=== PATIENT | male | born 1965 | race Caucasian/White ===

== ENCOUNTER 2018-07-29 13:31 | Inpatient (IN) | payer OTHER ==
[~2018-07-29] VITALS: Ht 149.9 cm; Wt 59.9 kg
[2018-07-29 13:35] VITALS: BP 180/96
--- NOTE | 2018-07-29 13:55 | NUR ---
SEEN BY ERMD WITH ORDERS AND CARRIED OUT.
--- NOTE | 2018-07-29 13:59 | NUR ---
52 YO MALE BIB SELF FOR SUDDEN ONSET OF CHEST PAIN, AWAKE AND ALERT ABLE TO AMBULATE NO ACUTE DISTRESS.
[2018-07-29] MEDS ORDERED: LORazepam 2 MG/ML VIAL IVP ONE (14:00)
[2018-07-29] MEDS ORDERED: KETOROLAC 30 MG/ML VIAL IVP ONE (14:00)
[2018-07-29] MEDS ORDERED: NACL 0.9% 1,000 ML IV ONE (14:00)
--- NOTE | 2018-07-29 14:40 | NUR ---
MEDICATED PER ERMDS ORDER, TOLERATED WELL.
[2018-07-29 14:57] LABS: BASOPHILS % (AUTO) 0.7 % (0.0-2.0); EOSINOPHILS % (AUTO) 0.7 % (0.0-4.0); HEMATOCRIT 37.7 % (36-52); HEMOGLOBIN 12.8 g/dL (12.0-18.0); LYMPHOCYTES # (AUTO) 0.5 K/uL (2.0-11.5); LYMPHOCYTES % (AUTO) 10.9 % (20.5-51.1); MEAN CORPUSCULAR HEMOGLOBIN 32 pg (27-31); MEAN CORPUSCULAR HGB CONC 34 g/dL (33-37); MEAN CORPUSCULAR VOLUME 93.2 fL (80-94); MONOCYTES # (AUTO) 0.5 K/uL (0.8-1.0); MONOCYTES % (AUTO) 12.3 % (1.7-9.3); NEUTROPHILS # (AUTO) 3.4 K/uL (1.8-7.7); NEUTROPHILS % (AUTO) 75.4 % (42.2-75.2); PLATELET COUNT (AUTO) 109 K/uL (140-450); RED BLOOD CELL COUNT(AUTO) 4.05 MIL/uL (4.20-6.10); RED CELL DISTRIBUTION WIDTH 14.7 % (11.6-13.7); WHITE BLOOD COUNT (AUTO) 4.4 K/uL (4.8-10.8)
[2018-07-29 15:15] LABS: ALBUMIN 3.9 g/dL (3.4-5.0); AMYLASE 106 U/L (25-115); ANION GAP 15.7 (8-16); ASPARTATE AMINOTRANSFERASE 126 U/L (15-37); CARBON DIOXIDE 23.2 mmol/L (21-32); CHLORIDE 84 mmol/L (98-107); CREATININE 0.6 mg/dL (0.7-1.3); GFR ARICAN-AMERICAN 181 mL/min (>90); GLUCOSE 136 mg/dL (74-106); LIPASE 657 U/L (73-393); MAGNESIUM 1.3 mg/dL (1.8-2.4); POTASSIUM 3.9 mmol/L (3.5-5.1); TOTAL BILIRUBIN 0.9 mg/dL (0.0-1.0); UREA NITROGEN, BLOOD 4 mg/dL (7-18)
[2018-07-29 15:36] LABS: SODIUM SERUM 119 mmol/L (136-145)
[2018-07-29 15:44] LABS: PROTHROMBIN TIME 9.4 secs (10.8-13.4)
[2018-07-29] MEDS ORDERED: ESCI10TA PO (16:13)
--- NOTE | 2018-07-29 16:14 | NUR ---
PT BACK FROM RADIOLOGY VIA [facility] BY TECH. MATT LOMELI AT BEDSIDE.
[2018-07-29] MEDS ORDERED: ONDANSETRON 4 MG/2 ML VIAL IVP PRN (16:15)
[2018-07-29] MEDS ORDERED: MORPHINE SULFATE 4 MG/ML SYR IVP PRN (16:15)
[2018-07-29] MEDS ORDERED: ACETAMINOPHEN 325 MG TAB PO PRN (16:15)
[2018-07-29] MEDS ORDERED: LORazepam 2 MG/ML VIAL IVP PRN (16:15)
--- NOTE | 2018-07-29 16:16 | NUR ---
RESULTS BACK AND NOTED BY ERMD AND FOR ADMISSION.
--- NOTE | 2018-07-29 16:18 | NUR ---
Patient will be admitted to care of DR. NEWMAN. Admited to TELEMETRY. Will go to room 125 B. Belongings list completed.
[2018-07-29] MEDS ORDERED: MULTIVITAMIN-12 10 ML, THIAMINE 100 MG, FOLIC ACID 1 MG, MAGNESIUM SULFATE 50% 2,000 MG... IV SCH ×5 (16:20)
[2018-07-29] MEDS ORDERED: hydrALAZINE 20 MG/ML VIAL IVP PRN (16:20)
[2018-07-29 16:50] VITALS: BP 154/91
--- NOTE | 2018-07-29 16:50 | NUR ---
RECEIVED BEDSIDE REPORT FROM ER NURSE. PATIENT IS AWAKE, ALERT AND ORIENTEDX4. NO SIGNS OF DISTRESS ON RA. SKIN IS INTACT. IV ON R AC 20G INFUSING NS BOLUS. CLEAN, DRY AND INTACT. FALL RISK PROTOCOL. PATIENT AMBULATED GAIT IS UNSTEADY. SEIZURE PRECAUTIONS IN PLACE D/T POSSIBLE ALCOHOL WITHDRAWAL. VITALS WITHIN NORMAL LIMITS. TELE MONITOR IN PLACE. PATIENT INCONTINENT AT THIS TIME, HE STATES HES NOT ABLE TO MAKE IT TO THE RESTROOM ON TIME. CHANGED PATIENT INTO HOSPITAL GOWN. MRSA SWAB DONE, URINE COLLECT. WILL CONTINUE TO MONITOR THE PATIENT. MOM AT BEDSIDE
--- NOTE | 2018-07-29 17:00 | NUR ---
HOME MED SENT TO PHARMACY
--- NOTE | 2018-07-29 17:20 | NUR ---
DR DOOLEY CALLED ASKS FOR LAB ORDERS, STAT BMP, WANTS DONE Q3HRS. PLACEMENT OF LEBLANC, STRICT I&OS. URINE OSMOLARITY, NA, AND K. ALSO VIT C, MULTIVIT, AND FOLIC ACID. ORDERS ARE IN. LEBLANC IS PLACE. 500ML OUT.
[2018-07-29] MEDS: chlordiazePOXIDE 25 MG CAP PO SCH (18:14)
[2018-07-29] MEDS ORDERED: DEXTROSE 5% 100 ML IV SCH (18:40)
[2018-07-29] MEDS ORDERED: MAG SULF 2000 MG/WATER PREMIX 50 ML IV ONE (18:40)
[2018-07-29 18:44] LABS: ANION GAP 13.2 (8-16); CARBON DIOXIDE 25.5 mmol/L (21-32); CREATININE 0.6 mg/dL (0.7-1.3); POTASSIUM 3.7 mmol/L (3.5-5.1)
[2018-07-29] MEDS ORDERED: MULTIVITAMIN-12 10 ML, THIAMINE 100 MG, MAGNESIUM SULFATE 50% 2,000 MG, FOLIC ACID 1 MG... IV SCH ×5 (19:00)
[2018-07-29] MEDS ORDERED: MULTIVITAMIN 1 TAB PO SCH (19:00)
[2018-07-29] MEDS ORDERED: ASCORBIC ACID 500 MG TAB PO SCH (19:00)
[2018-07-29] MEDS ORDERED: FOLIC ACID 1 MG TAB PO SCH (19:00)
--- NOTE | 2018-07-29 19:00 | NUR ---
CALLED DR DOOLEY. HE SAID D/T THE NEW SODIUM OF 124 HE WANTS A BANANA BAG W D5W INSTEAD OF LR. PHARMACY IS AWARE AND SAID THEY WILL MAKE A NEW BAG.
--- NOTE | 2018-07-29 19:25 | NUR ---
NEW IV L FA 22G. SL. CLEAN, DRY AND INTACT. DR DOOLEY WANTED 2ND LINE IN CASE OF EMERGENCY
--- NOTE | 2018-07-29 19:30 | NUR ---
GAVE BEDSIDE REPORT TO CYBER SOFTWARE ENGINEER NURSE. PATIENT ENDORSED IN STABLE CONDITION
--- NOTE | 2018-07-29 19:31 | NUR ---
RECEIVED PT IN STABLE CONDITION FROM AM NURSE. AWAKE,ALERT AND ORIENTED X4. ON BEDREST. ON TELE MONITOR-ST. NO C/O ANY DISCOMFORT NOR PAIN NOTED. AM NURSE STARTING A NEW IV ACCESS. PLAN OF CARE DISCUSSED WITH PT AND VERBALIZED UNDERSTANDING. WITH LEBLANC CATH TO GRAVITY. CALL LIGHT PLACED WITHIN EASY REACH. BED ON LOWEST POSITION AND ARE PADDED FOR SEIZURE PRECAUTION. INSTRUCTED TO CALL IN NEED ASSISTANCE OR FOR ANY PROBLEM. WILL CONTINUE TO MONITOR.
[2018-07-29 19:42] LABS: APPEARANCE,URINE CLEAR (CLEAR); BILIRUBIN,URINE NEGATIVE (NEGATIVE); BLOOD, URINE NEGATIVE (NEGATIVE); COLOR,URINE YELLOW (YELLOW); LEUKOCYTE ESTERASE ,URINE NEGATIVE (NEGATIVE); NITRITE, URINE NEGATIVE (NEGATIVE); PH,URINE 6.5 (5.0-9.0); UGLUCOSE NEGATIVE (NEGATIVE)
[2018-07-29] MEDS: DEXTROSE 5% IV SCH ×3 (19:48→23:15)
[2018-07-29] MEDS: MAGNESIUM SULFATE IV SCH ×3 (19:48→23:15)
[2018-07-29 20:00] VITALS: BP 159/98
[2018-07-29 20:47] LABS: CARBON DIOXIDE 27.8 mmol/L (21-32); CREATININE 0.6 mg/dL (0.7-1.3); POTASSIUM 3.8 mmol/L (3.5-5.1)
--- NOTE | 2018-07-29 21:11 | NUR ---
ADDITIONAL ORDER OF DR. GAYLE TO CALL HIM IF NA LEVEL AT MN IS BELOW 120 AND IF ABOVE 128.
--- NOTE | 2018-07-29 21:11 | NUR ---
NA LEVEL 124. PAGED DR. GAYLE .CALLED BACK . MADE AWARE WITH ORDERS.
[2018-07-29] MEDS: METOPROLOL 25 MG TAB PO SCH (21:38)
[2018-07-29 21:40] LABS: POTASSIUM,URINE RANDOM 11 mmol/L (12-75); URINE SODIUM, RANDOM 66 mmol/l (40-220)
[2018-07-30] VITALS: BP 155/83
--- NOTE | 2018-07-30 00:10 | NUR ---
BLOOD WAS DRAWN FOR ANOTHER BMP ORDERED. WILL FOLLOW UP RESULT.
[2018-07-30 00:50] LABS: ANION GAP 14.5 (8-16); CARBON DIOXIDE 27.4 mmol/L (21-32); CREATININE 0.6 mg/dL (0.7-1.3); POTASSIUM 3.9 mmol/L (3.5-5.1)
--- NOTE | 2018-07-30 00:56 | NUR ---
SR. DOOLEY CALLED AND ASKED ABOUT NA LEVEL. LEVEL 126. . HE ORDERED TO CHANGE THE BMP AT 0400 INSTEAD OF 0500. TO GIVE ALSO PT 500ML WATER TO DRINK ,TO FINISH BEFORE BLOOD DRAW.
--- NOTE | 2018-07-30 01:10 | NUR ---
PT STARTED DRINKING WATER TOTAL 500 ML TO TAKE IT SLOWLY. PT MADE AWARE TO FINISH BEFORE BLOOD DRAW.
--- NOTE | 2018-07-30 01:10 | NUR ---
DR. DOOLEY CALLED AGAIN ASKED ABOUT LEBLANC OUTPUT OF PT. OUTPUT 2,550 . ORDERED TO INCREASE THE BANANA BAG ON D5W T0 165 ML PER HOUR. THEN TO MEASURE LEBLANC OUTPUT Q2HRS.
[2018-07-30] MEDS: DEXTROSE 5% 1,000 ML IV SCH ×4 (01:20→09:00)
--- NOTE | 2018-07-30 03:00 | NUR ---
PT IS ASLEEP. NO S/S OF ANY DISCOMFORT NOTED. WILL CONTINUE TO MONITOR.
--- NOTE | 2018-07-30 04:10 | NUR ---
PT IS AAO X4. NEEDS ATTENDED. NO C/O ANY PAIN NOTED.
[2018-07-30 04:20] VITALS: BP 143/94
[2018-07-30 04:41] LABS: BASOPHILS % (AUTO) 0.3 % (0.0-2.0); EOSINOPHILS # (AUTO) 0.2 K/uL (0-0.4); EOSINOPHILS % (AUTO) 3.8 % (0.0-4.0); HEMATOCRIT 41.5 % (36-52); HEMOGLOBIN 13.8 g/dL (12.0-18.0); LYMPHOCYTES # (AUTO) 0.8 K/uL (2.0-11.5); LYMPHOCYTES % (AUTO) 15.9 % (20.5-51.1); MEAN CORPUSCULAR HEMOGLOBIN 31 pg (27-31); MEAN CORPUSCULAR HGB CONC 33 g/dL (33-37); MEAN CORPUSCULAR VOLUME 94.3 fL (80-94); MONOCYTES # (AUTO) 0.6 K/uL (0.8-1.0); MONOCYTES % (AUTO) 12.7 % (1.7-9.3); NEUTROPHILS # (AUTO) 3.4 K/uL (1.8-7.7); NEUTROPHILS % (AUTO) 67.3 % (42.2-75.2); PLATELET COUNT (AUTO) 102 K/uL (140-450); RED CELL DISTRIBUTION WIDTH 14.8 % (11.6-13.7); WHITE BLOOD COUNT (AUTO) 5.1 K/uL (4.8-10.8)
[2018-07-30 04:42] LABS: ANION GAP 13.4 (8-16); CARBON DIOXIDE 27.4 mmol/L (21-32); CREATININE 0.6 mg/dL (0.7-1.3); POTASSIUM 3.8 mmol/L (3.5-5.1)
--- NOTE | 2018-07-30 05:10 | NUR ---
PAGED DR. DOOLEY BUT DR. GAYLE STRIPER TO VERIFY ABOUT D5W. CALLED BACK . MADE AWARE ABOUT THE LATEST NA LEVEL 126. HE SAID TO HOLD THE IV D5W FOR NOW.
--- NOTE | 2018-07-30 05:14 | NUR ---
ADDITIONAL NOTE : DR. GAYLE WANTS THE NEXT BMP AT 10:00 AM TODAY. WILL ORDER.
--- NOTE | 2018-07-30 06:00 | NUR ---
LEBLANC OUTPUT 0330 AM 750 ML AND AT 0530 200 ML ,0730 ANOTHER 200 ML.
--- NOTE | 2018-07-30 07:30 | NUR ---
ENDORSED PT IN STABLE CONDITION TO AM NURSE.
--- NOTE | 2018-07-30 07:30 | NUR ---
RECEIVED PT AAOX4. NO C/O PAIN AT THIS TIME. IV TO LT HAND AND RT AC PATENT AND INTACT. CHEST DIMINISHED AIR ENTRY TO THE BASES, OTHERWISE CLEAR. ABDOMEN SOFT, BOWEL SOUND PRESENT. WITH LEBLANC CATHETER DRAINING MODERATE AMOUNTS OF SLIGHTLY DARK BRAYDEN URINE NOTED. INSTRUCTED PT TO CALL FOR ASSISTANCE, CALL LIGHT WITHIN REACH, BED ON LOWEST POSITION, VERBALIZED UNDERSTANDING.
[2018-07-30 08:00] VITALS: BP 131/92
--- NOTE | 2018-07-30 08:37 | NUR ---
PATIENT HAS BEEN SCREENED AND CATEGORIZED MODERATE NUTRITION RISK. PATIENT WILL BE SEEN WITHIN 3-5 DAYS OF ADMISSION. 08/01/18 08/03/[address]
[2018-07-30] MEDS ORDERED: ASCORBIC ACID 500 MG TAB PO SCH (09:00)
[2018-07-30 09:06] LABS: ANION GAP 12.4 (8-16); CARBON DIOXIDE 28.9 mmol/L (21-32); CREATININE 0.6 mg/dL (0.7-1.3); POTASSIUM 4.3 mmol/L (3.5-5.1)
[2018-07-30] MEDS: chlordiazePOXIDE 25 MG CAP PO SCH ×3 (09:12→17:56)
[2018-07-30] MEDS: METOPROLOL 25 MG TAB PO SCH ×2 (09:12→20:20)
[2018-07-30] MEDS: FOLIC ACID 1 MG TAB PO SCH (09:12)
[2018-07-30] MEDS: MULTIVITAMIN 1 TAB PO SCH (09:13)
[2018-07-30] MEDS: ASCORBIC ACID 500 MG TAB PO SCH (09:13)
[2018-07-30] MEDS: PANTOPRAZOLE 40 MG INJ VIAL IVP SCH (09:15)
--- NOTE | 2018-07-30 09:45 | NUR ---
DR. DOOLEY CAME TO SEE PT WITH NEW ORDERS.
--- NOTE | 2018-07-30 10:30 | NUR ---
URINE SPECIMEN COLLECTED AND SENT TO LAB FOR OSMOLALITY, K, NA ORDERED.
[2018-07-30 12:00] VITALS: BP 149/89
--- NOTE | 2018-07-30 14:57 | NUR ---
CM NOTE PER ELLE OF [facility] (PCP) PH# [phone], PATIENT IS SCHEDULED FOR OUTPATIENT FOLLOW UP APPOINTMENT ON AUGUST 04, 2018 AT THE CLINIC IN [address] [place] [address]. I GAVE PATIENT COPY OF THE SCHEDULE. Addendum: 07/31/18 at 1415 by Marian Ramos CM PATIENT OUTPATIENT SCHEDULE AUGUST 04, 2018 9:30 AM
[2018-07-30 15:30] LABS: CARBON DIOXIDE 25.8 mmol/L (21-32); CREATININE 0.6 mg/dL (0.7-1.3); POTASSIUM 3.8 mmol/L (3.5-5.1)
--- NOTE | 2018-07-30 15:45 | NUR ---
PT SEEN AGAIN BY DR. DOOLEY WITH NEW ORDERS.
[2018-07-30 16:00] VITALS: BP 137/86
--- NOTE | 2018-07-30 16:00 | NUR ---
INSTRUCTED PT ON 1 LITER PER DAY FLUID RESTRICTION. VERBALIZED UNDERSTANDING.
--- NOTE | 2018-07-30 18:00 | NUR ---
PT TOLERATED CLEAR LIQUIDS WELL. NO ABD PAIN, N&V NOTED.
--- NOTE | 2018-07-30 19:00 | NUR ---
PT RESTING. NO SOB NOTED. NO SIGNS OF PAIN. WILL ENDORSE TO NEXT SHIFT NURSE FOR CONTINUITY OF CARE.
--- NOTE | 2018-07-30 19:20 | NUR ---
RECEIVED PT AWAKE ON BED, AAOX4, VITAL SIGNS STABLE, DENIES PAIN, NO SIGNS OF WITHDRAWAL NOTED, LEBLANC CATHETER IN PLACE DRAINING WELL, PT AWARE OF FLUID RESTRICTION, PLAN OF CARE DISCUSSED, SAFETY MEASURES IN PLACE, CALL LIGHT WITHIN REACH.
[2018-07-30 20:00] VITALS: BP 130/85
--- NOTE | 2018-07-30 20:20 | NUR ---
DUE PO MEDICATION TAKEN, URINE SPECIMEN SENT TO LAB FOR TEST, ALL NEEDS ATTENDED.
[2018-07-30] MEDS ORDERED: PNEUMOCOCCAL VACCINE 23 MCG/0.5 ML VIAL IMVAC PRN (20:40)
[2018-07-30] MEDS ORDERED: INFLUENZA VIRUS VACCINE QUAD 0.5 ML SYR IMVAC PRN (20:40)
[2018-07-30 21:03] LABS: POTASSIUM,URINE RANDOM 11 mmol/L (12-75); URINE SODIUM, RANDOM 54 mmol/l (40-220)
[2018-07-30 21:57] LABS: ANION GAP 15.4 (8-16); CARBON DIOXIDE 24.5 mmol/L (21-32); CREATININE 0.7 mg/dL (0.7-1.3); POTASSIUM 3.9 mmol/L (3.5-5.1)
--- NOTE | 2018-07-30 22:26 | NUR ---
SALT TABS NOT AVAILABLE AT THIS TIME, DR DOOLEY MADE AWARE, DR SOUMYA MCKAY STATED CALL [facility] TO DELIVER IT OR CALL PHARMACY TO SUPPLY IT BECAUSE I WANT THE PT GET IT NOW, SAMIRA HOLLINGSWORTH MADE AWARE, HE WILL CALL [facility].
[2018-07-30] MEDS ORDERED: SODIUM CHLORIDE 1 GM TAB PO SCH (22:30)
--- NOTE | 2018-07-30 23:11 | NUR ---
DUE SALT TABS GIVEN, PT AMBULATED TO BR AND HAD BM, CONTINUE TO MONITOR CLOSELY.
[2018-07-31] VITALS: BP 125/86
[2018-07-31] MEDS ORDERED: SODIUM CHLORIDE 1 GM TAB PO SCH ×2 (02:00→09:00)
[2018-07-31 04:00] VITALS: BP 142/90
--- NOTE | 2018-07-31 04:00 | NUR ---
PT SLEEPING, EASILY AROUSABLE, VITAL SIGNS STABLE, DENIES PAIN, MONITORED CLOSELY.
--- NOTE | 2018-07-31 06:38 | NUR ---
AM LABS DRAWN, PT REQUEST WATER TO BRUSH HIS TEETH, AWARE OF FLUID RESTRICTION, MONITORED CLOSELY.
--- NOTE | 2018-07-31 07:30 | NUR ---
PT AWAKE, NO DISTRESS NOTED, REPORT GIVEN TO ARMANI SCHILLING FOR CONTINUITY OF CARE.
[2018-07-31 07:33] LABS: ANION GAP 14.7 (8-16); CARBON DIOXIDE 26.3 mmol/L (21-32); CREATININE 0.7 mg/dL (0.7-1.3)
--- NOTE | 2018-07-31 07:35 | NUR ---
RECEIVED BEDSIDE REPORT FROM METROPOLITAN EDITOR RN. PT SITTING UP IN BED, AAOX4. DENIES PAIN AND DISCOMFORT. NO C/O ANXIETY. NO SIGNS OF ETOH WITHDRAWAL. VITAL SIGNS STABLE. LEBLANC CATHETER IN PLACE, DRAINING URINE. SKIN INTACT. PT IS AMBULATORY. PT IS AWARE OF FLUID RESTRICTION OF 1L/DAY. IV SITES PATENT AND ASYMPTOMATIC, ON SL. PLAN OF CARE DISCUSSED, SAFETY MEASURES IN PLACE, CALL LIGHT WITHIN REACH.
[2018-07-31 07:37] LABS: BASOPHILS % (AUTO) 0.8 % (0.0-2.0); EOSINOPHILS # (AUTO) 0.2 K/uL (0-0.4); EOSINOPHILS % (AUTO) 4.9 % (0.0-4.0); HEMATOCRIT 40.7 % (36-52); HEMOGLOBIN 13.8 g/dL (12.0-18.0); LYMPHOCYTES # (AUTO) 1.1 K/uL (2.0-11.5); LYMPHOCYTES % (AUTO) 21.1 % (20.5-51.1); MEAN CORPUSCULAR HEMOGLOBIN 32 pg (27-31); MEAN CORPUSCULAR HGB CONC 34 g/dL (33-37); MEAN CORPUSCULAR VOLUME 95.6 fL (80-94); MONOCYTES # (AUTO) 0.6 K/uL (0.8-1.0); MONOCYTES % (AUTO) 12.5 % (1.7-9.3); NEUTROPHILS % (AUTO) 60.7 % (42.2-75.2); PLATELET COUNT (AUTO) 136 K/uL (140-450); RED BLOOD CELL COUNT(AUTO) 4.26 MIL/uL (4.20-6.10); RED CELL DISTRIBUTION WIDTH 15.1 % (11.6-13.7)
--- NOTE | 2018-07-31 07:49 | NUR ---
CALLED DR. DOOLEY AND NOTIFIED HIM THAT NA+ IS 130 FROM THIS MORNING'S LABS. PER DR. DOOLEY, PT IS OKAY TO GO HOME FROM HIS STANDPOINT. WILL NOTIFY DR. NEWMAN.
[2018-07-31 08:00] VITALS: BP 138/95
[2018-07-31] MEDS: PANTOPRAZOLE 40 MG INJ VIAL IVP SCH (09:05)
[2018-07-31] MEDS: FOLIC ACID 1 MG TAB PO SCH (09:06)
[2018-07-31] MEDS: METOPROLOL 25 MG TAB PO SCH (09:06)
[2018-07-31] MEDS: chlordiazePOXIDE 25 MG CAP PO SCH ×2 (09:06→12:03)
[2018-07-31] MEDS: MULTIVITAMIN 1 TAB PO SCH (09:06)
[2018-07-31] MEDS: ASCORBIC ACID 500 MG TAB PO SCH (09:06)
--- NOTE | 2018-07-31 09:13 | NUR ---
SCHEDULED 0900 MEDICATIONS ADMINISTERED. EXPLAINED TO PT THAT HE IS STILL RECEIVING "SALT PILL" BECAUSE NA+ IS STILL BELOW NORMAL. PT VERBALIZED COMPLETE UNDERSTANDING. PT CONTINUES TO DENY ANXIETY, PAIN, AND DISCOMFORT.
--- NOTE | 2018-07-31 11:15 | NUR ---
PT RESTING COMFORTABLY IN BED, WATCHING TV. NO C/O ANXIETY, PAIN, OR DISCOMFORT. ALL SAFETY PRECAUTIONS IN PLACE, WILL CONTINUE TO MONITOR.
--- NOTE | 2018-07-31 11:26 | NUR ---
CM NOTE CHART REVIEW DONE
[2018-07-31 12:00] VITALS: BP 136/87
--- NOTE | 2018-07-31 12:47 | NUR ---
PT RESTING IN BED, WATCHING TV. NO S/S ALCOHOL WITHDRAWAL. DENIES PAIN AND DISCOMFORT. ALL SAFETY PRECAUTIONS IN PLACE, WILL CONTINUE TO MONITOR.
[2018-07-31 12:48] LABS: POTASSIUM,URINE RANDOM 54 mmol/L (12-75); URINE SODIUM, RANDOM 11 mmol/l (40-220)
--- NOTE | 2018-07-31 12:50 | NUR ---
DR. DOOLEY HAS NOTIFIED DR. NEWMAN THAT PT IS OKAY TO D/C FROM HIS STANDPOINT. PER Alejandro TERAN/Ladan LEBLANC.
[2018-07-31] MEDS ORDERED: LORA-476 PO (14:02)
[2018-07-31] MEDS ORDERED: METO25TA PO (14:03)
--- NOTE | 2018-07-31 15:00 | NUR ---
DISCHARGE PAPERWORK, INCLUDING INSTRUCTIONS TO F/U WITH PCP (F/U APPOINTMENT CARD PROVIDED TO PT) AND NEW RX, GIVEN TO PT. NEW MEDICATION TEACHING AND MED RECONCILIATION TEACHING GIVEN. ADMINISTERED FLU VACCINE. FLU VACCINATION TEACHING GIVEN. PT VERBALIZED COMPLETE UNDERSTANDING OF ALL D/C TEACHING. LEBLANC CATHETER REMOVED. CATHETER TIP INTACT. PT TOLERATED WELL. NO BLEEDING. PT STATES FAMILY WILL BE AT HOSPITAL SOON TO PICK HIM UP. REMOVED TELE MONITOR, PT WILL GET DRESSED NOW. WILL CONTINUE TO MONITOR UNTIL D/C.
--- NOTE | 2018-07-31 15:25 | NUR ---
IV SITES REMOVED. ID BANDS REMOVED. RETRIEVED PT'S HOME MEDS FROM INPATIENT PHARMACY AND GAVE TO PATIENT. PT LEFT UNIT WITH FAMILY MEMBERS.
--- NOTE | 2018-07-31 15:46 | NUR ---
Fitness Worker Note: Late entry for earlier today: I met with patient at bedside to provide him with education on alcohol/substance abuse treatment programs and counseling/mental health services; provided him with community resources. He stated he has anxiety and depression. He stated he will review list of counseling/mental health services and list of alcohol/substance abuse treatment programs and follow up with these resources.
== END 2018-07-31 15:25 | disposition home or self-care (01) | DRG 282 ==
LOC: MED 13:31 → MMU 16:12 → MTU 18:14
PROVIDERS: ADMIT Hospitalist; ATTEND Hospitalist
DX: K85.90 Acute pancreatitis without necrosis or infection, unspecified (principal); D69.6 Thrombocytopenia, unspecified; E87.1 Hypo-osmolality and hyponatremia; I10 Essential (primary) hypertension; B19.20 Unspecified viral hepatitis C without hepatic coma; E83.42 Hypomagnesemia; F41.9 Anxiety disorder, unspecified; F10.20 Alcohol dependence, uncomplicated; Y90.9 Presence of alcohol in blood, level not specified; F11.10 Opioid abuse, uncomplicated; Z23 Encounter for immunization
CPT/HCPCS: 36415; 71045; 80048; 80053; 81003; 82150; 83690; 83735; 83930; 83935; 84133; 84300; 84443; 84484; 85025; 85610; 85730; 87081; 90658; 90732; 93005; 96361; 96374; 96375; 99285; A9153; C9113; G0482; J1885; J2060; J3411; J3475; J3490; J7030; J7060

== ENCOUNTER 2019-03-07 10:32 | Inpatient (IN) | payer OTHER ==
[~2019-03-07] VITALS: Ht 170.2 cm; Wt 68.0 kg
[~2019-03-07 10:32] MED LIST: ESCI10TA PO; LORA-476 PO; METO25TA PO
[2019-03-07 10:49] VITALS: BP 162/91
--- NOTE | 2019-03-07 10:50 | NUR ---
53 Y/O MALE C/O GENERALIZED WEAKNESS X 3 DAYS. HE STATES THAT HAS HAD AN ALCOHOLIC DRINK ON MONDAY MARCH 04, 2019. TREMORS NOTED. PERRL +2, PMH: ANXIETY NKDA RX:NONE
[2019-03-07] MEDS ORDERED: NACL 0.9% 1,000 ML IV ONE ×2 (11:05→12:00)
[2019-03-07] MEDS ORDERED: LORazepam 2 MG/ML VIAL IVP ONE (11:05)
[2019-03-07 11:35] LABS: BASOPHILS % (AUTO) 0.4 % (0.0-2.0); EOSINOPHILS # (AUTO) 0.1 K/uL (0-0.4); EOSINOPHILS % (AUTO) 1.6 % (0.0-4.0); HEMATOCRIT 35.1 % (36-52); HEMOGLOBIN 12.4 g/dL (12.0-18.0); LYMPHOCYTES # (AUTO) 0.7 K/uL (2.0-11.5); LYMPHOCYTES % (AUTO) 10.4 % (20.5-51.1); MEAN CORPUSCULAR HEMOGLOBIN 33 pg (27-31); MEAN CORPUSCULAR HGB CONC 35 g/dL (33-37); MEAN CORPUSCULAR VOLUME 92.3 fL (80-94); MONOCYTES # (AUTO) 0.7 K/uL (0.8-1.0); MONOCYTES % (AUTO) 10.6 % (1.7-9.3); NEUTROPHILS # (AUTO) 4.9 K/uL (1.8-7.7); PLATELET COUNT (AUTO) 118 K/uL (140-450); RED CELL DISTRIBUTION WIDTH 13.7 % (11.6-13.7); WHITE BLOOD COUNT (AUTO) 6.3 K/uL (4.8-10.8)
[2019-03-07 11:42] LABS: APPEARANCE,URINE CLEAR (CLEAR); BILIRUBIN,URINE NEGATIVE (NEGATIVE); BLOOD, URINE NEGATIVE (NEGATIVE); COLOR,URINE YELLOW (YELLOW); LEUKOCYTE ESTERASE ,URINE NEGATIVE (NEGATIVE); NITRITE, URINE NEGATIVE (NEGATIVE); UGLUCOSE 1+ (NEGATIVE)
[2019-03-07 11:47] LABS: BARBITURATE, URINE NEG. ng/ml (NEG <=200); BENZODIAZEPINE, URINE NEG. ng/mL (NEG <=200); CANNABINOID, URINE NEG. ng/mL (NEG <=50); COCAINE, URINE NEG. ng/mL (NEG <=300); OPIATE, URINE NEG. ng/mL (NEG <=2000); PHENCYCLIDINE SCREEN,URINE NEG. ng/mL (NEG <=25)
[2019-03-07 11:52] LABS: ALBUMIN 3.3 g/dL (3.4-5.0); ANION GAP 12.1 (8-16); CARBON DIOXIDE 24.9 mmol/L (21-32); CREATININE 0.8 mg/dL (0.7-1.3); TOTAL BILIRUBIN 1.1 mg/dL (0.0-1.0)
[2019-03-07 12:00] LABS: RBC,URINE 0-5 /HPF (0-5)
[2019-03-07 12:01] LABS: WBC,URINE 0-5 /HPF (0-5)
--- NOTE | 2019-03-07 13:03 | NUR ---
Patient appears to be resting in bed. Vital Signs within normal limits. Respirations even and unlabored.
--- NOTE | 2019-03-07 13:45 | NUR ---
PT ARRIVED ON THE UNIT. PT IS AWAKE AND STABLE PT IS AMBULATING TO THE RESTROOM. TOOK PTS VITALS PT IS STABLE COLLECTED MRSA SWAB
--- NOTE | 2019-03-07 13:47 | NUR ---
Patient will be admitted to care of . Admited to [facility] Will go to room 106 B Belongings list completed. Report to DANILO LOMELI.
[2019-03-07] MEDS ORDERED: MAG SULF 2000 MG/WATER PREMIX 50 ML IV PRN (14:50)
[2019-03-07] MEDS ORDERED: POTASSIUM CHLORIDE 10 MEQ TABER PO PRN (14:50)
[2019-03-07] MEDS ORDERED: guaiFENesin DM 200/20 MG-10 ML 10 ML UDC PO PRN (14:50)
[2019-03-07] MEDS ORDERED: DOCUSATE SODIUM 250 MG GELCAP PO PRN (14:50)
[2019-03-07] MEDS: POTASSIUM CHL 20 MEQ/NACL 0.9% 1,000 ML IV SCH (14:50)
[2019-03-07] MEDS ORDERED: ACETAMINOPHEN 650 MG SUPP RC PRN (14:50)
[2019-03-07] MEDS ORDERED: diphenhydrAMINE 50 MG/ML VIAL IVP PRN (14:50)
[2019-03-07] MEDS ORDERED: ZOLPIDEM 5 MG TAB PO PRN (14:50)
[2019-03-07] MEDS ORDERED: ACETAMINOPHEN 325 MG TAB PO PRN (14:50)
[2019-03-07] MEDS ORDERED: BISACODYL 10 MG SUPP RC PRN (14:50)
[2019-03-07] MEDS ORDERED: cloNIDine 0.1 MG TAB PO PRN (14:50)
[2019-03-07] MEDS ORDERED: POTASSIUM CHLORIDE 40 MEQ, LIDOCAINE 1% 25 MG in NACL 0.9% 250 ML IV PRN (14:50)
[2019-03-07] MEDS ORDERED: ALBUTEROL 0.083% 2.5 MG/3 ML NEBU INH PRN (14:50)
[2019-03-07] MEDS ORDERED: MORPHINE SULFATE 2 MG/ML SYR IVP PRN (14:50)
[2019-03-07] MEDS ORDERED: SODIUM PHOSPHATE 118 ML ENEM RC PRN (14:50)
[2019-03-07] MEDS ORDERED: IPRATROPIUM 0.02% 0.5 MG/2.5 ML NEBU INH PRN (14:50)
[2019-03-07] MEDS ORDERED: ALUMINUM HYD/MAG/SIMETHICONE 30 ML UDC PO PRN (14:50)
[2019-03-07] MEDS ORDERED: MAGNESIUM OXIDE 400 MG TAB PO PRN (14:50)
[2019-03-07] MEDS ORDERED: HYDROcodone/APAP 5/325 MG 1 TAB TAB PO PRN ×2 (14:50)
[2019-03-07] MEDS ORDERED: ONDANSETRON 4 MG/2 ML VIAL IVP PRN (14:50)
--- NOTE | 2019-03-07 15:29 | NUR ---
FREQUENT ROUNDING ON PT IS STABLE WILL CONTINUE TO MONITOR.
[2019-03-07 16:05] VITALS: BP 130/92
[2019-03-07] MEDS: LORazepam 2 MG/ML VIAL IVP PRN (17:13)
--- NOTE | 2019-03-07 17:45 | NUR ---
FREQUENT ROUNDING ON PT PT APPEARS STABLE AND IN NO APPARENT DISTRESS ALL SAFETY MEASURES ARE IN PLACE WILL CONTINUE TO MONITOR
--- NOTE | 2019-03-07 19:28 | NUR ---
ENDORSED PT TO PM RN PT IS ASLEEP IN BED. NOTABLE CHEST RISE AND FALL. IVF INFUSING IV SITE PATENT AND SHOWS NO SIGNS OF INFILTRATION OR INFUSION
--- NOTE | 2019-03-07 19:29 | NUR ---
RECEIVED PT FROM AM SHIFT, PT AWAKE ALERT PORIENTED Addendum: 03/07/19 at 2 by Chasidy Murillo RN CONTINUATION: AWAKE, ALERT ORIENTED X 4, PT ABLE TO AMBULATE, STANDBY ASSIST; PT HERE FOR HYPONATREMIA AND DEHYDRATION DUE TO ALCOHOL INTOXICATION. POC REVIEWED. PLACED IN LOW BED; CALL LIGHT WITHIN EASY REACH
--- NOTE | 2019-03-07 19:52 | NUR ---
PT W/ ONGOING NS = 20 MEQS RUNNINGH AT 100ML/HR R HAND G 20
[2019-03-07 20:00] VITALS: BP 127/80
--- NOTE | 2019-03-07 20:16 | NUR ---
PT SAID HE HAD BM X 2 TODAY.FORMED STOOL. WILL CONTINUE TO MONITOR
--- NOTE | 2019-03-07 20:44 | NUR ---
PT STATES HE IS FEELING ANXIOUS AND THAT HE WANTS A DRINK RIGHT NOW, AND HAVING DIFFICULTY COPING. WILL GIVE ATIVAN PRN. WILL CONTINUE TO MONITOR
--- NOTE | 2019-03-07 20:44 | NUR ---
TO PHARMACY: IN THE PYXIS WASTED 1.5 MG. ERROR ON THE DOCUMENTATION OF THE WASTE, PLS CHANGE TO 1 MG WASTED Addendum: 03/08/19 at 0538 by Chasidy Murillo RN DELETE NOTE. WASTED 1.5. ORDER .5MG TO BE GIVEN
--- NOTE | 2019-03-07 20:50 | NUR ---
TO PHARMACY: RETURNED THE UNOPENED LORAZEPAM/ ATIVAN 2MG/ML AT THE [employer] INSIDE BIN. BECAUSE OF DISCREPANCY IN THE WASTED AMOUNT. DOCUMENTED 1. 5 MG. WHEN IT SHOULD BE 1 MG OR .5 ML Addendum: 03/08/19 at 0538 by Chasidy Murillo RN NAETE NOTE Addendum: 03/08/19 at 0542 by Chasidy Murillo RN TO PHARMACY: RETURNED THE UNOPENED LORAZEPAM/ ATIVAN 2MG/ML AT THE [facility]. INSIDE BIN. BECAUSE OF DISCREPANCY IN THE WASTED AMOUNT. WHEN IT SHOULD BE .5 MG ORDERED AMOUNT AND THE WASTED AMOUNT SHOULD BE 1. 5 MG
--- NOTE | 2019-03-07 21:02 | NUR ---
HOLD ON THE ATIVAN TO BE GIVEN FOR NOW STILL 3 HRS SINCE LAST GIVEN Addendum: 03/08/19 at 0024 by Chasidy Murillo RN HOLD OFF
--- NOTE | 2019-03-08 00:23 | NUR ---
PT SLEEPING AT THIS TIME, NO MORE ATIVAN NEEDED FOR NOW. WILL CONTINUE TO MONITOR
[2019-03-08] MEDS: POTASSIUM CHL 20 MEQ/NACL 0.9% 1,000 ML IV SCH ×3 (01:39→20:50)
--- NOTE | 2019-03-08 02:00 | NUR ---
HELPED PT CLEANED UP, AND CHANGED DRESSING GOWN, PT WENT TO BATHROOM AMBULATORY, STANDBY ASSIST
[2019-03-08 04:49] VITALS: BP 133/86
--- NOTE | 2019-03-08 05:22 | NUR ---
PT SLEEPING IN BED, COMFORTABLE, NO COMPLAINTS AT THIS TIME. NO SOB NO RESPIRATORY DISTRESS. WILL CONTINUE TO MONITOR
--- NOTE | 2019-03-08 05:40 | NUR ---
PT EXPRESS ANXIETY, PT RESTLESS AT THIS TIME, WILL GIVE ORDERED ATIVAN PRN 0.5MG
[2019-03-08] MEDS: LORazepam 2 MG/ML VIAL IVP PRN (05:41)
--- NOTE | 2019-03-08 06:40 | NUR ---
PT IN STABLE CONDITION NO COMPLAINTS AT THIS TIME. WILL ENDORSE TO NEXT SHIFT
[2019-03-08 07:00] LABS: ANION GAP 13.3 (8-16); CARBON DIOXIDE 23.7 mmol/L (21-32); CREATININE 0.7 mg/dL (0.7-1.3)
--- NOTE | 2019-03-08 07:20 | NUR ---
RECEIVED BEDSIDE REPORT FROM PSYCHIATRIC MENTAL HEALTH NURSE NURSE. PATIENT AWAKE AND RESTING ON BED AT THIS TIME. AROUSABLE TO VOICE. PATIENT IS AAOX4, SPEAKS PERUVIAN AND ABLE TO UNDERSTAND SOME [place]. PATIENT IS ABLE TO FOLLOW COMMAND AND MAKE NEED KNOWN. RESPIRATION EVEN AND UNLABORED ON RA. LUNGS SOUND CLEAR ON AUSCULTATION. PATIENT DENIED PAIN AND SOB. NO SIGNS OF DISTRESS NOTED. IV ON R WRIST 20G, CLEAN AND INTACT, INFUSING PER MD ORDER. SKIN INTACT AND CLEAN. PATIENT IS CONTINENT AND ABLE TO AMBULATE WITH STEADY GAIT. DISCUSSED PLAN OF CARE WITH PATIENT AND PATIENT VERBALIZED UNDERSTANDING. SAFETY MEASURES IN PLACE. BED IN LOW POSITION AND CALL LIGHT WITHIN REACH. INSTRUCTED PATIENT TO USE THE CALL LIGHT FOR ANY ASSISTANCE AND PATIENT WAS AWARE.
--- NOTE | 2019-03-08 07:53 | NUR ---
PATIENT HAS BEEN SCREENED AND CATEGORIZED LOW NUTRITION RISK. PATIENT WILL BE SEEN WITHIN 7 DAYS OF ADMISSION. 03/14/[address]
[2019-03-08 08:00] VITALS: BP 140/85
--- NOTE | 2019-03-08 09:20 | NUR ---
PATIENT AWAKE AND WATCHING TV ON BED AT THIS TIME. DENIED PAIN. NO SIGNS OF DISTRESS NOTED. SAFETY MEASURES IN PLACE. BED IN LOW POSITION AND CALL LIGHT WITHIN REACH. INSTRUCTED PATIENT TO USE THE CALL LIGHT FOR ANY ASSISTANCE AND PATIENT WAS AWARE.
--- NOTE | 2019-03-08 10:38 | NUR ---
PATIENT IS SITTING UP ON BED AND TALKING TO HIS FATHER AT BEDSIDE. NO SIGNS OF DISTRESS NOTED. SAFETY MEASURES IN PLACE. BED IN LOW POSITION AND CALL LIGHT WITHIN REACH. INSTRUCTED PATIENT TO USE THE CALL LIGHT FOR ANY ASSISTANCE AND PATIENT WAS AWARE.
--- NOTE | 2019-03-08 11:10 | NUR ---
DR JOE IS TALKING TO PATIENT AT BEDSIDE. NO SIGNS OF DISTRESS NOTED. SAFETY MEASURES IN PLACE. BED IN LOW POSITION AND CALL LIGHT WITHIN REACH. INSTRUCTED PATIENT TO USE THE CALL LIGHT FOR ANY ASSISTANCE AND PATIENT WAS AWARE.
--- NOTE | 2019-03-08 11:29 | NUR ---
ADMINISTERED MEDS PER MD, PATIENT TOLERATED WELL. MEDS EDUCATION PROVIDED TO PT AND PT VERBALIZED UNDERSTANDING. PATIENT AWAKE AND WATCHING TV ON BED. DENIED PAIN. NO SIGNS OF DISTRESS NOTED. SAFETY MEASURES IN PLACE. BED IN LOW POSITION AND CALL LIGHT WITHIN REACH. INSTRUCTED PATIENT TO USE THE CALL LIGHT FOR ANY ASSISTANCE AND PATIENT WAS AWARE.
[2019-03-08] MEDS ORDERED: THIAMINE 100 MG TAB PO SCH (11:30)
[2019-03-08] MEDS ORDERED: FOLIC ACID 1 MG TAB PO SCH (11:30)
[2019-03-08] MEDS ORDERED: LORazepam 1 MG TAB PO SCH (11:30)
--- NOTE | 2019-03-08 13:40 | NUR ---
PATIENT AWAKE AND WATCHING TV ON BED AT THIS TIME. RESPIRATION EVEN AND UNLABORED ON RA. DENIED PAIN. NO SIGNS OF DISTRESS NOTED. SAFETY MEASURES IN PLACE. BED IN LOW POSITION AND CALL LIGHT WITHIN REACH. INSTRUCTED PATIENT TO USE THE CALL LIGHT FOR ANY ASSISTANCE AND PATIENT WAS AWARE.
--- NOTE | 2019-03-08 15:13 | NUR ---
PATIENT IS SLEEPING AT THIS TIME. EVEN AND UNLABORED CHEST RISES NOTED; ON RA. NO SIGNS OF DISTRESS NOTED. SAFETY MEASURES IN PLACE. BED IN LOW POSITION AND CALL LIGHT WITHIN REACH.
[2019-03-08 16:00] VITALS: BP 145/90
--- NOTE | 2019-03-08 17:40 | NUR ---
PATIENT IS AWAKE AND TALKING TO VISITOR TOREY AT BEDSIDE. NO SIGNS OF DISTRESS NOTED. BED IN LOW POSITION AND CALL LIGHT WITHIN REACH, INSTRUCTED PATIENT TO USE THE CALL LIGHT FOR ANY ASSISTANCE AND PATIENT WAS AWARE.
--- NOTE | 2019-03-08 19:00 | NUR ---
RECEIVED BEDSIDE REPORT FROM DAY SHIFT NURSE. PATIENT IS AWAKE, ALERT, AND COOPERATIVE. RESPIRATION EVEN UNLABORED ON ROOM AIR. NO DISTRESS NOTED. SKIN IS WARM AND DRY. IV PATENT AND INTACT. DENIES PAIN. PATIENT IS AMBULATORY AND ABLE TO MAKE NEEDS KNOWN. PLAN PF CARE WAS DISCUSSED. ALL SAFETY MEASURES IN PLACE. BED IS AT LOW POSITION. CALL LIGHT WITHIN REACH AND VERBALIZES ITS USE. WILL CONTINUE TO MONITOR.
--- NOTE | 2019-03-08 19:14 | NUR ---
ENDORSED PATIENT AT BEDSIDE TO LUNG PULLER NURSE FOR CONTINUITY OF CARE. PATIENT AWAKE AND WATCHING TV ON BED AT THIS TIME. NO SIGNS OF DISTRESS NOTED. PATIENT IS IN STABLE CONDITION. SAFETY MEASURES IN PLACE. BED IN LOW POSITION AND CALL LIGHT WITHIN REACH.
--- NOTE | 2019-03-08 20:00 | NUR ---
INITIAL ASSESSMENT DONE. VITALS WERE TAKEN. PATIENT IN STABLE CONDITION. NO DISTRESS NOTED. WILL CONTINUE TO MONITOR.
--- NOTE | 2019-03-08 21:00 | NUR ---
ALL SCHEDULED MEDS WERE GIVEN PER ORDER. NO ASE NOTED. WILL CONTINUE TO MONITOR.
[2019-03-08] MEDS: LORazepam 1 MG TAB PO SCH (21:31)
--- NOTE | 2019-03-08 22:00 | NUR ---
PATIENT IN BED WATCHING TV RESPIRATION EVEN UNLABORED ON ROOM AIR. NO DISTRESS NOTED. WILL CONTINUE TO MONITOR.
[2019-03-09] VITALS: BP 143/78
--- NOTE | 2019-03-09 | NUR ---
VITALS WERE TAKEN. PATIENT IN STABLE CONDITION. NO DISTRESS NOTED. WILL CONTINUE TO MONITOR.
--- NOTE | 2019-03-09 02:00 | NUR ---
CHECKED PATIENT. PATIENT SLEEPING RESPIRATION EVEN UNLABORED ON ROOM AIR. NO DISTRESS NOTED. WILL CONTINUE TO MONITOR.
[2019-03-09] MEDS: POTASSIUM CHL 20 MEQ/NACL 0.9% 1,000 ML IV SCH (03:38)
--- NOTE | 2019-03-09 04:00 | NUR ---
CHECKED PATIENT. PATIENT SLEEPING RESPIRATION EVEN UNLABORED ON ROOM AIR. NO DISTRESS NOTED. WILL CONTINUE TO MONITOR.
--- NOTE | 2019-03-09 05:24 | NUR ---
PATIENT ACCIDENTALLY PULLED HIS IV WHILE GOING TO THE BATHROOM. NO ACTIVE BLEEDING SEEN. CANNULA INTACT. INSERTED A NEW ONE ON THE LEFT AC 22G.
--- NOTE | 2019-03-09 07:15 | NUR ---
ENDORSED PATIENT TO DAY SHIFT NURSE FOR CONTINUITY OF CARE. PATIENT IN STABLE CONDITION.
--- NOTE | 2019-03-09 07:20 | NUR ---
RECEIVED BEDSIDE REPORT FROM DIRECTOR OF MOBILE MARKETING NURSE. PT IS AWAKE AND ALERT, NO S/S OF ANY ACUTE DISTRESS OR SOB NOTED. PT IS ON ROOM AIR, SKIN IS INTACT. IV SITE NOTED ON THE L AC 22 G, INFUSING NACL KCL 100 ML/HR. PT IS AMBULATORY, IS NOT A FALL RISK. CALL LIGHT IS WITHIN REACH, WILL CONTINUE TO MONITOR.
[2019-03-09 07:25] LABS: CARBON DIOXIDE 25.1 mmol/L (21-32); CREATININE 0.7 mg/dL (0.7-1.3); POTASSIUM 4.1 mmol/L (3.5-5.1)
[2019-03-09 08:00] VITALS: BP 150/90
[2019-03-09] MEDS ORDERED: FOLIC ACID 1 MG TAB PO SCH (09:00)
[2019-03-09] MEDS ORDERED: THIAMINE 100 MG TAB PO SCH (09:00)
[2019-03-09] MEDS: LORazepam 1 MG TAB PO SCH (09:18)
--- NOTE | 2019-03-09 09:28 | NUR ---
AM MEDS ADMINISTERED, PT TOLERATED WELL
--- NOTE | 2019-03-09 09:40 | NUR ---
PT SEEN BY DR JOE
[2019-03-09] MEDS ORDERED: amLODIPine 5 MG TAB PO SCH (09:51)
[2019-03-09] MEDS ORDERED: AMLO10TA4 PO (09:54)
[2019-03-09] MEDS ORDERED: VITB1I PO (09:54)
[2019-03-09] MEDS ORDERED: LORA-476 PO (09:54)
[2019-03-09 11:45] VITALS: BP 148/90
--- NOTE | 2019-03-09 11:45 | NUR ---
PT'S BP IS 148/90 AT THIS TIME.
--- NOTE | 2019-03-09 12:27 | NUR ---
PT EATING LUNCH AT THIS TIME.
--- NOTE | 2019-03-09 15:00 | NUR ---
PT HAS DISCHARGED. DC INSTRUCTIONS WERE EXPLAINED TO PT, WELL THE PRESCRIPTION. PT VERBALIZED UNDERSTANDING OF DC TEACHING. IV AND WRIST BAND WERE REMOVED. PT LEFT WITH ALL HIS BELONGINGS IN STABLE CONDITION, ACCOMPANIED BY A FRIEND.
--- NOTE | 2019-03-09 15:24 | NUR ---
Follow up appointment with Fanta Dillon NP on 03/18/19 at 0930. Address: [address] [place] [phone]. Clinic # . Appointment given to patient's mother Haley Wyman with verbal understanding.
[2019-03-10] MEDS ORDERED: amLODIPine 5 MG TAB PO SCH (09:00)
== END 2019-03-09 15:00 | disposition home or self-care (01) | DRG 426 ==
LOC: MED 10:32 → MTU 12:48
PROVIDERS: ADMIT Internal Medicine Pulmonary Disease; ATTEND Internal Medicine Pulmonary Disease
DX: E87.1 Hypo-osmolality and hyponatremia (principal); E44.1 Mild protein-calorie malnutrition; E51.9 Thiamine deficiency, unspecified; E86.0 Dehydration; G62.9 Polyneuropathy, unspecified; F10.239 Alcohol dependence with withdrawal, unspecified; F41.9 Anxiety disorder, unspecified; E87.6 Hypokalemia
CPT/HCPCS: 36415; 71045; 80048; 80053; 80305; 81001; 84484; 85025; 87081; 93005; 96361; 96374; 99285; G0482; J2060; J7030; Q0092